=== PATIENT | male | born 1985 | race Caucasian/White ===

== ENCOUNTER 2016-11-21 11:25 | Emergency (ER) | payer OTHER ==
[~2016-11-21] VITALS: Ht 172.7 cm; Wt 65.8 kg
[~2016-11-21 11:25] MED LIST: IBUP-1007 PO; ONDA4TAB7 PO; OXYC-323 PO; TERA1CAP3 PO
[2016-11-21] MEDS ORDERED: MORPHINE SULFATE 10 MG/ML VIAL. IV ONE ×3 (12:30→15:30)
[2016-11-21] MEDS ORDERED: KETOROLAC TROMETHAMINE 30 MG/ML SYRINGE. IV ONE (12:30)
[2016-11-21] MEDS ORDERED: ONDANSETRON PF 4 MG/2 ML VIAL. IV ONE (12:30)
[2016-11-21] MEDS ORDERED: IV NORMAL SALINE 1000ML BAG 1,000 ML IV SCH (12:30)
[2016-11-21 12:39] LABS: BASO # 0.1 x10^3/uL (0.0-0.2); BASO % 1 % (0-3); EOS % 2 % (0-3); HEMOGLOBIN 14.8 g/dL (13.0-17.5); LYMPH # 2.1 x10^3/uL (1.0-4.8); LYMPH % 16 % (24-48); MEAN CORPUSCULAR HEMOGLOBIN 31 pg (25-35); MEAN CORPUSCULAR HGB CONC 33 g/dL (31-37); MEAN CORPUSCULAR VOLUME 94 fL (79-100); MONO % 9 % (0-9); NEUT % 72 % (31-73); PLATELET COUNT 247 x10^3/uL (140-400); RED CELL DISTRIBUTION WIDTH 13.2 % (11.5-14.5); WHITE BLOOD COUNT 13.4 x10^3/uL (4.0-11.0)
[2016-11-21 12:40] LABS: BILIRUBIN,URINE NEGATIVE (NEG); GLUCOSE,URINE NEGATIVE (NEG); NITRITE,URINE NEGATIVE (NEG); PROTEIN,URINE NEGATIVE (NEG-TRACE); UROBILINOGEN,URINE 0.2 mg/dL (0.2 mg/dL)
[2016-11-21 12:45] LABS: CALCIUM 9.6 mg/dL (8.5-10.1); CREATININE 1.3 mg/dL (0.7-1.3); GFR 63.6; POTASSIUM 3.9 mmol/L (3.5-5.1)
[2016-11-21 12:46] LABS: BARBITURATES NEG (NEG); BENZODIAZEPINES NEG (NEG); CANNABINOIDS NEG (NEG); COCAINE NEG (NEG); METHADONE NEG (NEG); OPIATES NEG (NEG); PHENCYCLIDINE NEG (NEG)
[2016-11-21 12:51] LABS: ALBUMIN 4.2 g/dL (3.4-5.0); ALBUMIN/GLOBULIN RATIO 1.3 (1.0-1.7); TOTAL BILIRUBIN 0.7 mg/dL (0.2-1.0); TOTAL PROTEIN 7.5 g/dL (6.4-8.2)
[2016-11-21 12:51] LABS: BACTERIA,URINE 0 /HPF (0-FEW); ETHANOL, URINE NEG (NEG); RBC,URINE 0 /HPF (0-2); WBC,URINE 0 /HPF (0-4)
--- NOTE | 2016-11-21 12:52 | PHYS DOC ---
Past Medical History Past Medical History: Kidney Stone Past Surgical History: Other Additional Past Surgical Histo: L KNEE ARTHROSCOPY Additional Information: 1 ppd Alcohol Use: None Drug Use: None Adult General Chief Complaint Chief Complaint: FLANK PAIN HPI HPI Patient is a 31 year old male presents emergency room the complaint of atraumatic, intermittent right flank pain for approximately one week. Patient was seen here this past year with similar symptoms. CT scan was performed that showed a kidney stone at the [facility]. Patient states he has not followed up with anybody since that period of time. He denies any history of recurring kidney stones or other renal problems. Patient denies any fevers or chills. He does report some nausea without vomiting. He denies antibiotic use in the past 30 days. Review of Systems Review of Systems Constitutional: Denies fever or chills [] Eyes: Denies change in visual acuity, redness, or eye pain [] HENT: Denies nasal congestion or sore throat [] Respiratory: Denies cough or shortness of breath [] Cardiovascular: No additional information not addressed in HPI [] GI: Denies abdominal pain, nausea, vomiting, bloody stools or diarrhea [] : Denies dysuria or hematuria [] Musculoskeletal: Denies back pain or joint pain [] Integument: Denies rash or skin lesions [] Neurologic: Denies headache, focal weakness or sensory changes [] Endocrine: Denies polyuria or polydipsia [] Current Medications Current Medications Current Medications Medications (Trade) Dose Ordered Sig/Nash Start Time Stop Time Status Last Admin Dose Admin Ketorolac Tromethamine (Toradol) 30 mg 1X ONCE 11/21/16 12:30 11/21/16 12:31 DC 11/21/16 12:37 30 MG Morphine Sulfate 5 mg 1X ONCE 11/21/16 15:30 11/21/16 15:31 DC 11/21/16 15:32 5 MG Ondansetron HCl (Zofran) 4 mg 1X ONCE 11/21/16 12:30 11/21/16 12:31 DC 11/21/16 12:36 4 MG Sodium Chloride (Iv Sodium Chloride 0.9% 1000ml Bag) 1,000 ml @ 100 mls/hr Q10H 11/21/16 12:30 11/21/16 15:43 DC 11/21/16 12:34 100 MLS/HR Allergies Allergies Allergies Coded Allergies Type Severity Reaction Last Updated Verified No Known Drug Allergies 06/22/16 No Physical Exam Physical Exam Constitutional: Well developed, well nourished, moderate distress, non-toxic appearance. HENT: Normocephalic, atraumatic, bilateral external ears normal, oropharynx moist, no oral exudates, nose normal. [] Eyes: PERRLA, EOMI, conjunctiva normal, no discharge. [] Neck: Normal range of motion, no tenderness, supple, no stridor. [] Cardiovascular:Heart rate regular rhythm, no murmur [] Lungs & Thorax: Bilateral breath sounds clear to auscultation [] Abdomen: Abdomen is soft and nondistended. There are normoactive bowel sounds in all 4 quadrants. There is no palpable deep into the abdominal wall or pulsatile mass. Skin: Warm, dry, no erythema, no rash. [] Back: Patient's back appears normal and atraumatic. There is a significant amount of right CVA tenderness. Extremities: No tenderness, no cyanosis, no clubbing, ROM intact, no edema. [] Neurologic: Alert and oriented X 3, normal motor function, normal sensory function, no focal deficits noted. [] Psychologic: Affect normal, judgement normal, mood normal. [] Current Patient Data Vital Signs Vital Signs Date Time Temp Pulse Resp B/P Pulse Ox O2 Delivery O2 Flow Rate FiO2 11/21/16 15:32 18 Room Air 11/21/16 15:02 66 135/85 100 Lab Values Laboratory Tests Test 11/21/16 11:40 11/21/16 11:45 White Blood Count 13.4x10^3/uL (4.0-11.0) H Red Blood Count 4.80x10^6/uL (4.30-5.70) Hemoglobin 14.8g/dL (13.0-17.5) Hematocrit 45.0% (39.0-53.0) Mean Corpuscular Volume 94fL (79-100) Mean Corpuscular Hemoglobin 31pg (25-35) Mean Corpuscular Hemoglobin Concent 33g/dL (31-37) Red Cell Distribution Width 13.2% (11.5-14.5) Platelet Count 247x10^3/uL (140-400) Neutrophils (%) (Auto) 72% (31-73) Lymphocytes (%) (Auto) 16% (24-48) L Monocytes (%) (Auto) 9% (0-9) Eosinophils (%) (Auto) 2% (0-3) Basophils (%) (Auto) 1% (0-3) Neutrophils # (Auto) 9.7x10^3uL (1.8-7.7) H Lymphocytes # (Auto) 2.1x10^3/uL (1.0-4.8) Monocytes # (Auto) 1.3x10^3/uL (0.0-1.1) H Eosinophils # (Auto) 0.3x10^3/uL (0.0-0.7) Basophils # (Auto) 0.1x10^3/uL (0.0-0.2) Sodium Level 141mmol/L (136-145) Potassium Level 3.9mmol/L (3.5-5.1) Chloride Level 103mmol/L (98-107) Carbon Dioxide Level 28mmol/L (21-32) Anion Gap 10 (6-14) Blood Urea Nitrogen 18mg/dL (8-26) Creatinine 1.3mg/dL (0.7-1.3) Estimated GFR (Cockcroft-Gault) 63.6 BUN/Creatinine Ratio 14 (6-20) Glucose Level 88mg/dL (70-99) Calcium Level 9.6mg/dL (8.5-10.1) Total Bilirubin 0.7mg/dL (0.2-1.0) Aspartate Amino Transferase (AST) 21U/L (15-37) Alanine Aminotransferase (ALT) 29U/L (16-63) Alkaline Phosphatase 61U/L (46-116) Total Protein 7.5g/dL (6.4-8.2) Albumin 4.2g/dL (3.4-5.0) Albumin/Globulin Ratio 1.3 (1.0-1.7) Lipase 129U/L (73-393) Urine Color Yellow Urine Clarity Clear Urine pH 7.0 Urine Specific [place] <=1.005 Urine Protein Negativemg/dL (NEG-TRACE) Urine Glucose (UA) Negativemg/dL (NEG) Urine Ketones (Stick) Negativemg/dL (NEG) Urine Blood Moderate (NEG) Urine Nitrite Negative (NEG) Urine Bilirubin Negative (NEG) Urine Urobilinogen Dipstick 0.2mg/dL (0.2 mg/dL) Urine Leukocyte Esterase Negative (NEG) Urine RBC 0/HPF (0-2) Urine WBC 0/HPF (0-4) Urine Bacteria 0/HPF (0-FEW) Urine Opiates Screen Neg (NEG) Urine Methadone Screen Neg (NEG) Urine Barbiturates Neg (NEG) Urine Phencyclidine Screen Neg (NEG) Urine Amphetamine/Methamphetamine Neg (NEG) Urine Benzodiazepines Screen Neg (NEG) Urine Cocaine Screen Neg (NEG) Urine Cannabinoids Screen Neg (NEG) Urine Ethyl Alcohol Neg (NEG) Laboratory Tests 11/21/16 11:40 Laboratory Tests 11/21/16 11:40 EKG EKG [] Radiology/Procedures Radiology/Procedures [] PATIENT: MATTHEW BARRIENTOS ACCOUNT: [id number] : 1985 LOCATION: ER AGE: 31 SEX: M EXAM STATUS: REG ER ORD. PHYSICIAN: LUIS ALBERTO HUGHES REASON: RIGHT flank pain PROCEDURE: ABDOMEN PELVIS WO CONTRAST Indication right flank pain. Imaging through the abdomen and pelvis was performed. Examination was tailored for the detection of renal and/or ureteral calculi. No IV or gastrointestinal contrast was administered. Note is made of a previous examination 06/22/2016. The lung bases are clear. The liver and spleen appear unremarkable and the gallbladder appears grossly normal. No definite pancreatic pathology is seen. There are occasional minute bilateral renal calculi. On the left there is no hydronephrosis hydroureter or calcification seen along the course of the ureter. On the right there is moderately severe hydronephrosis to the level of a 4 mm calculus in the mid right ureter opposite the L4-5 disc. Additional calcifications are noted in the pelvis compatible with phleboliths. An additional finding in the abdomen or pelvis is not seen. The appendix is seen in the right lower quadrant and appears unremarkable. IMPRESSION: 4 mm calculus in the mid right ureter with associated moderately high-grade obstructive uropathy. Minute bilateral renal calculi additionally noted PQRS Compliance Statement: One or more of the following individualized dose reduction techniques were utilized for this examination: 1. Automated exposure control 2. Adjustment of the mA and/or kV according to patient size 3. Use of iterative reconstruction technique DICTATED and SIGNED BY: ANGEL JOSUE MD DATE: 11/21/16 3294 CC: LUIS ALBERTO HUGHES; MANSOOR HERNANDEZ MD ~ Course & Med Decision Making Course & Med Decision Making Patient has had no episodes of vomiting here in the emergency department. He has required several doses of morphine to help make sure that his pain control has been "marginal". We currently do not have urology coverage at this facility. I discussed this with patient and his . Patient and requesting to be seen and taken care at [facility] if it is possible. They prefer to travel by way of POV to that facility. I spoke with Areli , urology office nurse who works for Dr. Bah. Dr. Bah will accept this patient on his service. Dragon Disclaimer Dragon Disclaimer This electronic medical record was generated, in whole or in part, using a voice recognition dictation system. Departure Departure Impression: Primary Impression: Hydronephrosis with renal and ureteral calculous obstruction Disposition: 02 TRANSFER [facility] ([facility] via POV) Condition: STABLE Referrals: MANSOOR HERNANDEZ MD (PCP) Patient Instructions: Kidney Stones, [id number] Additional Instructions: 1. As discussed, you have a kidney stone that is obstructing the flow of urine from your right kidney to your bladder. There is no evidence of infection or kidney function impairment at this time. 2. Dr. Bah, a urologist at [facility], well except you to his service for additional treatment. 3. You are choosing to go to [facility] by way of your privately owned vehicle. Be sure to go directly there. Check into the main admission office in the hospital. LUIS ALBERTO HUGHES Nov 21, 2016 12:52
--- NOTE | 2016-11-21 13:11 | RAD ---
Indication right flank pain. Imaging through the abdomen and pelvis was performed. Examination was tailored for the detection of renal and/or ureteral calculi. No IV or gastrointestinal contrast was administered. Note is made of a previous examination 06/22/2016. The lung bases are clear. The liver and spleen appear unremarkable and the gallbladder appears grossly normal. No definite pancreatic pathology is seen. There are occasional minute bilateral renal calculi. On the left there is no hydronephrosis hydroureter or calcification seen along the course of the ureter. On the right there is moderately severe hydronephrosis to the level of a 4 mm calculus in the mid right ureter opposite the L4-5 disc. Additional calcifications are noted in the pelvis compatible with phleboliths. An additional finding in the abdomen or pelvis is not seen. The appendix is seen in the right lower quadrant and appears unremarkable. IMPRESSION: 4 mm calculus in the mid right ureter with associated moderately high-grade obstructive uropathy. Minute bilateral renal calculi additionally noted PQRS Compliance Statement: One or more of the following individualized dose reduction techniques were utilized for this examination: 1. Automated exposure control 2. Adjustment of the mA and/or kV according to patient size 3. Use of iterative reconstruction technique
[2016-11-21 15:02] VITALS: BP 135/85
== END 2016-11-21 15:43 | disposition home or self-care (01) ==
LOC: ER 11:25
DX: N13.2 Hydronephrosis with renal and ureteral calculous obstruction (principal)
CPT/HCPCS: 36415; 74176; 80053; 81001; 83690; 85027; 96361; 96374; 96375; 96376; 99285; G0481; J1885; J2270; J2405; J7030

== ENCOUNTER 2017-11-29 10:39 | Emergency (ER) | payer OTHER ==
[2017-11-29] MEDS: IV NORMAL SALINE 1000ML BAG 1,000 ML IV (11:07)
[2017-11-29] MEDS: ONDANSETRON PF 4 MG/2 ML VIAL. IV (11:07)
[2017-11-29] MEDS: fentaNYL PF VIAL 100 MCG/2 ML VIAL IV ×4 (11:08→14:19)
[2017-11-29 11:10] LABS: ADD MAN DIFF? NO
[2017-11-29 11:21] LABS: BASO # 0.1 x10^3/uL (0.0-0.2); BASO % 1 % (0-3); EOS # 0.1 x10^3/uL (0.0-0.7); EOS % 2 % (0-3); HEMATOCRIT 47.4 % (39.0-53.0); HEMOGLOBIN 15.9 g/dL (13.0-17.5); LYMPH # 1.6 x10^3/uL (1.0-4.8); LYMPH % 18 % (24-48); MEAN CORPUSCULAR HEMOGLOBIN 32 pg (25-35); MEAN CORPUSCULAR HGB CONC 34 g/dL (31-37); MEAN CORPUSCULAR VOLUME 96 fL (79-100); MONO # 0.7 x10^3/uL (0.0-1.1); MONO % 8 % (0-9); NEUT # 6.3 x10^3uL (1.8-7.7); NEUT % 71 % (31-73); PLATELET COUNT 227 x10^3/uL (140-400); RED BLOOD COUNT 4.93 x10^6/uL (4.30-5.70); RED CELL DISTRIBUTION WIDTH 13.8 % (11.5-14.5); WHITE BLOOD COUNT 8.9 x10^3/uL (4.0-11.0)
[2017-11-29 11:23] LABS: BILIRUBIN,URINE NEGATIVE (NEG); CLARITY,URINE CLEAR; COLOR,URINE YELLOW; GLUCOSE,URINE NEGATIVE (NEG); NITRITE,URINE NEGATIVE (NEG); PH,URINE 7.5; PROTEIN,URINE NEGATIVE (NEG-TRACE); UROBILINOGEN,URINE 0.2 mg/dL (0.2 mg/dL)
[2017-11-29 11:26] LABS: ANION GAP 9 (6-14); BLOOD UREA NITROGEN 19 mg/dL (8-26); BUN/CREATININE RATIO 19 (6-20); CALCIUM 9.1 mg/dL (8.5-10.1); CARBON DIOXIDE 28 mmol/L (21-32); CHLORIDE 104 mmol/L (98-107); GFR 85.5; GLUCOSE 104 mg/dL (70-99); POTASSIUM 4.2 mmol/L (3.5-5.1); SODIUM 141 mmol/L (136-145)
[2017-11-29 11:34] LABS: ALBUMIN/GLOBULIN RATIO 1.2 (1.0-1.7); ALK PHOS 65 U/L (46-116); ALT (SGPT) 27 U/L (16-63); AST (SGOT) 17 U/L (15-37); LIPASE 107 U/L (73-393); TOTAL BILIRUBIN 0.3 mg/dL (0.2-1.0); TOTAL PROTEIN 7.4 g/dL (6.4-8.2)
[2017-11-29 11:35] LABS: BACTERIA,URINE 0 /HPF (0-FEW); RBC,URINE 0 /HPF (0-2); WBC,URINE 0 /HPF (0-4)
[2017-11-29] MEDS: KETOROLAC 30 MG/ML INJ. IV (12:31)
[2017-11-29] MEDS: HYDROcodone/APAP 7.5/325MG 1 TAB TABLET PO (15:09)
== END 2017-11-29 15:15 | disposition home or self-care (01) ==
LOC: ER 10:39
DX: R10.30 Lower abdominal pain, unspecified (principal); R11.0 Nausea; F17.200 Nicotine dependence, unspecified, uncomplicated; Z96.0 Presence of urogenital implants; Z87.442 Personal history of urinary calculi; Z88.5 Allergy status to narcotic agent
CPT/HCPCS: 36415; 74176; 76870; 80053; 81001; 83690; 85025; 96361; 96374; 96375; 96376; 99285-25; J1885; J2405; J3010; J7030

== ENCOUNTER 2017-12-01 05:50 | Emergency (ER) | payer OTHER ==
[2017-12-01] MEDS: IV NORMAL SALINE 1000ML BAG 1,000 ML IV (06:24)
[2017-12-01 06:40] LABS: ADD MAN DIFF? NO
[2017-12-01 06:51] LABS: ANION GAP 8 (6-14); BLOOD UREA NITROGEN 16 mg/dL (8-26); BUN/CREATININE RATIO 18 (6-20); CALCIUM 9.1 mg/dL (8.5-10.1); CARBON DIOXIDE 28 mmol/L (21-32); CHLORIDE 107 mmol/L (98-107); CREATININE 0.9 mg/dL (0.7-1.3); GFR 96.6; GLUCOSE 75 mg/dL (70-99); POTASSIUM 4.1 mmol/L (3.5-5.1); SODIUM 143 mmol/L (136-145)
[2017-12-01 06:54] LABS: BILIRUBIN,URINE NEGATIVE (NEG); CLARITY,URINE CLEAR; COLOR,URINE YELLOW; GLUCOSE,URINE NEGATIVE (NEG); NITRITE,URINE NEGATIVE (NEG); PROTEIN,URINE NEGATIVE (NEG-TRACE); UROBILINOGEN,URINE 0.2 mg/dL (0.2 mg/dL)
[2017-12-01 06:55] LABS: BACTERIA,URINE 0 /HPF (0-FEW); RBC,URINE 0 /HPF (0-2); WBC,URINE 0 /HPF (0-4)
[2017-12-01 06:57] LABS: ALBUMIN 3.8 g/dL (3.4-5.0); ALBUMIN/GLOBULIN RATIO 1.2 (1.0-1.7); ALK PHOS 67 U/L (46-116); ALT (SGPT) 24 U/L (16-63); AST (SGOT) 20 U/L (15-37); LIPASE 96 U/L (73-393); TOTAL BILIRUBIN 0.3 mg/dL (0.2-1.0); TOTAL PROTEIN 6.9 g/dL (6.4-8.2)
[2017-12-01] MEDS: LIDOCAINE 2% 100 MG/5 ML SYRINGE. IV (06:57)
[2017-12-01 07:00] LABS: BASO # 0.1 x10^3/uL (0.0-0.2); BASO % 1 % (0-3); EOS # 0.2 x10^3/uL (0.0-0.7); EOS % 3 % (0-3); HEMATOCRIT 44.8 % (39.0-53.0); LYMPH # 1.8 x10^3/uL (1.0-4.8); LYMPH % 21 % (24-48); MEAN CORPUSCULAR HEMOGLOBIN 32 pg (25-35); MEAN CORPUSCULAR HGB CONC 33 g/dL (31-37); MEAN CORPUSCULAR VOLUME 94 fL (79-100); MONO # 0.7 x10^3/uL (0.0-1.1); MONO % 8 % (0-9); NEUT # 5.6 x10^3uL (1.8-7.7); NEUT % 67 % (31-73); PLATELET COUNT 211 x10^3/uL (140-400); RED BLOOD COUNT 4.75 x10^6/uL (4.30-5.70); RED CELL DISTRIBUTION WIDTH 13.7 % (11.5-14.5); WHITE BLOOD COUNT 8.4 x10^3/uL (4.0-11.0)
[2017-12-01] MEDS: KETOROLAC 30 MG/ML INJ. IV (07:43)
[2017-12-01] MEDS: HYDROcodone/APAP 5/325MG 1 TAB TABLET PO (08:46)
[2017-12-01] MEDS: HALOPERIDOL LACTATE 5 MG/ML VIAL. IVP (09:38)
[2017-12-01] MEDS ORDERED: IV NORMAL SALINE 1000ML BAG 1,000 ML IV (10:00)
[2017-12-01] MEDS ORDERED: CONTRAST GIVEN MC (10:15)
[2017-12-01] MEDS: IOHEXOL 300 MG/ML 100ML VIAL. IV (10:17)
[2017-12-01 10:47] LABS: SEDIMENTATION RATE 1 (0-15)
== END 2017-12-01 10:10 | disposition left against medical advice (07) ==
LOC: ER 10:10
DX: R10.84 Generalized abdominal pain (principal); Z87.442 Personal history of urinary calculi; Z88.5 Allergy status to narcotic agent
CPT/HCPCS: 36415; 76770; 80053; 81001; 83690; 85025; 85651; 96361; 96374; 96375; 99285-25; J1630; J1885; J7030

== ENCOUNTER 2018-09-22 19:38 | Emergency (ER) | payer OTHER ==
[~2018-09-22] VITALS: Ht 172.7 cm; Wt 63.5 kg
[~2018-09-22 19:38] MED LIST changes: +DICY10CA53 PO; +HYDR-971 PO; +ONDA4TAB10 SL
[2018-09-22] MEDS ORDERED: IV NORMAL SALINE 1000ML BAG 1,000 ML IV SCH (19:51)
[2018-09-22] MEDS ORDERED: KETOROLAC 30 MG/ML VIAL. IV ONE (20:00)
--- NOTE | 2018-09-22 20:04 | PHYS DOC ---
Past Medical History Past Medical History: Kidney Stone Additional Past Medical Histor: "INFLAMED INTESTINES" Past Surgical History: Other Additional Past Surgical Histo: LEFT KNEE SX, (?right) KIDNEY STENT Alcohol Use: None Drug Use: None Adult General Chief Complaint Chief Complaint: FLANK PAIN HPI HPI Patient is a 33 year old male who presents with left upper quadrant abdominal and flank pain. This started proximally 36 hours ago. It has been constant and getting worse over time. Worse after food. No home medicine has been taken. Also worse with movements kind of bending and deep breaths. Patient has no PE risk factors. Minimal worsening with exertion. No radiation of the pain. Reports it is moderate to severe in intensity. Some nausea, no vomiting, no diarrhea. No previous history of this. [] Review of Systems Review of Systems Constitutional: Denies fever or chills [] Eyes: Denies change in visual acuity, redness, or eye pain [] HENT: Denies nasal congestion or sore throat [] Respiratory: Denies cough or shortness of breath [] Cardiovascular: No chest pain or palpitations[] GI: See history of present illness[] : Denies dysuria or hematuria [] Musculoskeletal: Denies back pain or joint pain [] Integument: Denies rash or skin lesions [] Neurologic: Denies headache, focal weakness or sensory changes [] Endocrine: Denies polyuria or polydipsia [] All other systems were reviewed and found to be within normal limits, except as documented in this note. Current Medications Current Medications Current Medications Medications (Trade) Dose Ordered Sig/Nash Start Time Stop Time Status Last Admin Dose Admin Fentanyl Citrate (Fentanyl 2ml Vial) 25 mcg PRN Q15MIN PRN 09/22/18 20:00 09/23/18 19:59 09/22/18 21:24 25 MCG Hyoscyamine (Anaspaz) 0.125 mg 1X ONCE 09/22/18 21:30 09/22/18 21:31 DC Ketorolac Tromethamine (Toradol 30mg Vial) 30 mg 1X ONCE 09/22/18 20:00 09/22/18 20:01 DC 09/22/18 20:42 30 MG Metoclopramide HCl (Reglan Vial) 10 mg 1X ONCE 09/22/18 20:45 09/22/18 20:45 DC Sodium Chloride 1,000 ml @ 1,000 mls/hr Q1H 09/22/18 19:51 09/22/18 20:50 DC 09/22/18 19:51 1,000 MLS/HR Allergies Allergies Allergies Coded Allergies Type Severity Reaction Last Updated Verified codeine Allergy Intermediate Itching 11/29/17 Yes Physical Exam Physical Exam Constitutional: Well developed, well nourished, mild discomfort, non-toxic appearance. [] HENT: Normocephalic, atraumatic, bilateral external ears normal, oropharynx moist, no oral exudates, nose normal. [] Eyes: PERRLA, EOMI, conjunctiva normal, no discharge. [] Neck: Normal range of motion, no tenderness, supple, no stridor. [] Cardiovascular:Heart rate regular rhythm, no murmur [] Lungs & Thorax: Bilateral breath sounds clear to auscultation [] Abdomen: Bowel sounds normal, soft, some left upper quadrant tenderness, no rebound, no guarding, no rigidity, no CVA tenderness, no masses, no pulsatile masses. [] Skin: Warm, dry, no erythema, no rash. [] Back: No tenderness, no CVA tenderness. [] Extremities: No tenderness, no cyanosis, no clubbing, ROM intact, no edema. [] Neurologic: Alert and oriented X 3, normal motor function, normal sensory function, no focal deficits noted. [] Psychologic: Affect normal, judgement normal, mood normal. [] Current Patient Data Vital Signs Vital Signs Date Time Temp Pulse Resp B/P (MAP) Pulse Ox O2 Delivery O2 Flow Rate FiO2 09/22/18 21:24 20 100 Room Air 09/22/18 19:40 98.1 86 155/85 (108) 98.1 Lab Values Laboratory Tests Test 09/22/18 19:45 09/22/18 20:25 Urine Collection Type Unknown Urine Color Yellow Urine Clarity Clear Urine pH 6.5 Urine Specific [place] 1.015 Urine Protein Negative mg/dL (NEG-TRACE) Urine Glucose (UA) Negative mg/dL (NEG) Urine Ketones (Stick) Negative mg/dL (NEG) Urine Blood Negative (NEG) Urine Nitrite Negative (NEG) Urine Bilirubin Negative (NEG) Urine Urobilinogen Dipstick 0.2 mg/dL (0.2 mg/dL) Urine Leukocyte Esterase Negative (NEG) Urine RBC Occ /HPF (0-2) Urine WBC Occ /HPF (0-4) Urine Squamous Epithelial Cells Occ /LPF Urine Bacteria 0 /HPF (0-FEW) Urine Hyaline Casts Occasional /HPF Urine Mucus Mod /LPF Urine Opiates Screen Neg (NEG) Urine Methadone Screen Neg (NEG) Urine Barbiturates Pos (NEG) Urine Phencyclidine Screen Neg (NEG) Urine Amphetamine/Methamphetamine Neg (NEG) Urine Benzodiazepines Screen Neg (NEG) Urine Cocaine Screen Neg (NEG) Urine Cannabinoids Screen Neg (NEG) Urine Ethyl Alcohol Neg (NEG) White Blood Count 8.2 x10^3/uL (4.0-11.0) Red Blood Count 4.74 x10^6/uL (4.30-5.70) Hemoglobin 15.2 g/dL (13.0-17.5) Hematocrit 44.9 % (39.0-53.0) Mean Corpuscular Volume 95 fL (79-100) Mean Corpuscular Hemoglobin 32 pg (25-35) Mean Corpuscular Hemoglobin Concent 34 g/dL (31-37) Red Cell Distribution Width 13.6 % (11.5-14.5) Platelet Count 220 x10^3/uL (140-400) Neutrophils (%) (Auto) 55 % (31-73) Lymphocytes (%) (Auto) 32 % (24-48) Monocytes (%) (Auto) 9 % (0-9) Eosinophils (%) (Auto) 3 % (0-3) Basophils (%) (Auto) 1 % (0-3) Neutrophils # (Auto) 4.5 x10^3uL (1.8-7.7) Lymphocytes # (Auto) 2.6 x10^3/uL (1.0-4.8) Monocytes # (Auto) 0.7 x10^3/uL (0.0-1.1) Eosinophils # (Auto) 0.2 x10^3/uL (0.0-0.7) Basophils # (Auto) 0.1 x10^3/uL (0.0-0.2) Prothrombin Time 12.2 SEC (11.7-14.0) Prothrombin Time INR 1.0 (0.8-1.1) D-Dimer (Anya) < 0.27 ug/mlFEU Sodium Level 142 mmol/L (136-145) Potassium Level 4.0 mmol/L (3.5-5.1) Chloride Level 105 mmol/L (98-107) Carbon Dioxide Level 29 mmol/L (21-32) Anion Gap 8 (6-14) Blood Urea Nitrogen 19 mg/dL (8-26) Creatinine 1.2 mg/dL (0.7-1.3) Estimated GFR (Cockcroft-Gault) 68.9 BUN/Creatinine Ratio 16 (6-20) Glucose Level 88 mg/dL (70-99) Calcium Level 9.2 mg/dL (8.5-10.1) Total Bilirubin 0.2 mg/dL (0.2-1.0) Aspartate Amino Transferase (AST) 17 U/L (15-37) Alanine Aminotransferase (ALT) 25 U/L (16-63) Alkaline Phosphatase 70 U/L (46-116) Troponin I Quantitative < 0.017 ng/mL (0.000-0.055) Total Protein 7.0 g/dL (6.4-8.2) Albumin 3.5 g/dL (3.4-5.0) Albumin/Globulin Ratio 1.0 (1.0-1.7) Lipase 158 U/L (73-393) Laboratory Tests 09/22/18 20:25 Laboratory Tests 09/22/18 20:25 EKG EKG EKG shows a normal sinus rhythm, no ST elevation, normal axis, no prolonged QTC[ ] Radiology/Procedures Radiology/Procedures CT scan of the abdomen and pelvis shows no acute abdominal or pelvic findings. There are 1 mm bilateral renal stones, there is no obstructive uropathy. Moderate colonic stool.[] Course & Med Decision Making Course & Med Decision Making Pertinent Labs and Imaging studies reviewed. (See chart for details) ED course: Patient arrived, was placed in bed, tolerated exam well. Patient received IV pain medicine which did improve his discomfort. He also received oral medication. He was transported to and from CT with any complications. After return laboratory and CT fundus, discussion was made with the patient regarding these findings. All questions were answered. Medical decision making: There is no evidence of intestinal obstruction or perforation, no evidence of appendicitis or cholecystitis, no evidence of pancreatitis, no evidence of kidney stone, nor urinary tract infection/ pyelonephritis. No evidence of an acute medical or surgical pathology requiring admission at this time.[] Dragon Disclaimer Dragon Disclaimer This electronic medical record was generated, in whole or in part, using a voice recognition dictation system. Departure Departure Impression: Primary Impression: Abdominal pain Disposition: 01 HOME, SELF-CARE Referrals: NO PCP (PCP) Patient Instructions: Abdominal Pain Additional Instructions: Follow-up with your regular doctor in 2 days. Drink plenty of fluids. Return to the ER if forcing pain, unable to tolerate liquids, or any other concerns. Eat a bland diet for the next 2 days avoiding fatty foods, milk, and pepper. The stylet shouldn't include bananas, rice, applesauce, and toast. No butter or margarine on the toast, you may use jam or jelly. He may add baked potatoes and bread to this diet as well. Then advance the diet as tolerated. Scripts Dicyclomine Hcl (DICYCLOMINE HCL) 10 Mg Capsule 10 MG PO QID, #30 CAP Prov: GENESIS MORALES DO 09/22/18 Meloxicam (MELOXICAM) 7.5 Mg Tablet 7.5 MG PO DAILY, #20 TAB Prov: GENESIS MORALES DO 09/22/18 Metoclopramide Hcl (REGLAN) 10 Mg Tablet 10 MG PO QIDACHS, #30 TAB 0 Refills Prov: GENESIS MORALES DO 09/22/18 Problem Qualifiers Primary Impression: Abdominal pain Abdominal location: left upper quadrant Qualified Codes: R10.12 - Left upper quadrant pain GENESIS MORALES DO Sep 22, 2018 20:04
[2018-09-22 20:20] LABS: BILIRUBIN,URINE NEGATIVE (NEG); CLARITY,URINE CLEAR; COLOR,URINE YELLOW; NITRITE,URINE NEGATIVE (NEG); PH,URINE 6.5; PROTEIN,URINE NEGATIVE (NEG-TRACE); UROBILINOGEN,URINE 0.2 mg/dL (0.2 mg/dL)
[2018-09-22 20:23] LABS: BACTERIA,URINE 0 /HPF (0-FEW); RBC,URINE OCC /HPF (0-2)
[2018-09-22 20:24] LABS: HYALINE CASTS, URINE OCCASIONAL /HPF; SQUAMOUS EPITHELIAL CELL,UR OCC /LPF; WBC,URINE OCC /HPF (0-4)
[2018-09-22 20:26] LABS: AMPHETAMINE/METHAMPHETAMINE NEG (NEG); BARBITURATES POS (NEG); BENZODIAZEPINES NEG (NEG); CANNABINOIDS NEG (NEG); COCAINE NEG (NEG); METHADONE NEG (NEG); OPIATES NEG (NEG); PHENCYCLIDINE NEG (NEG)
[2018-09-22 20:37] LABS: BASO # 0.1 x10^3/uL (0.0-0.2); BASO % 1 % (0-3); EOS # 0.2 x10^3/uL (0.0-0.7); EOS % 3 % (0-3); HEMATOCRIT 44.9 % (39.0-53.0); HEMOGLOBIN 15.2 g/dL (13.0-17.5); LYMPH # 2.6 x10^3/uL (1.0-4.8); LYMPH % 32 % (24-48); MEAN CORPUSCULAR HEMOGLOBIN 32 pg (25-35); MEAN CORPUSCULAR HGB CONC 34 g/dL (31-37); MEAN CORPUSCULAR VOLUME 95 fL (79-100); MONO # 0.7 x10^3/uL (0.0-1.1); MONO % 9 % (0-9); NEUT # 4.5 x10^3uL (1.8-7.7); NEUT % 55 % (31-73); PLATELET COUNT 220 x10^3/uL (140-400); RED BLOOD COUNT 4.74 x10^6/uL (4.30-5.70); RED CELL DISTRIBUTION WIDTH 13.6 % (11.5-14.5); WHITE BLOOD COUNT 8.2 x10^3/uL (4.0-11.0)
[2018-09-22] MEDS: fentaNYL PF VIAL 100 MCG/2 ML VIAL IV PRN ×3 (20:43→21:51)
[2018-09-22] MEDS ORDERED: METOCLOPRAMIDE HCL 10 MG/2 ML VIAL. IV ONE (20:45)
[2018-09-22 20:47] LABS: CALCIUM 9.2 mg/dL (8.5-10.1); CREATININE 1.2 mg/dL (0.7-1.3); GFR 68.9; PROTHROMBIN TIME PATIENT 12.2 SEC (11.7-14.0)
[2018-09-22 20:53] LABS: D-DIMER < 0.27 ug/mlFEU (0.00-0.50)
[2018-09-22 20:54] LABS: ALBUMIN 3.5 g/dL (3.4-5.0); TOTAL BILIRUBIN 0.2 mg/dL (0.2-1.0)
--- NOTE | 2018-09-22 21:24 | RAD ---
EXAM: Abdomen and pelvis CT without intravenous contrast. HISTORY: Left flank pain and left upper quadrant pain. TECHNIQUE: Computed tomographic images of the abdomen and pelvis were obtained without contrast. Multiplanar reformatting was performed. *One or more of the following individualized dose reduction techniques were utilized for this examination: 1. Automated exposure control. 2. Adjustment of the mA and/or kV according to patient size. 3. Use of iterative reconstruction technique. COMPARISON: CT dated 11/29/2017. FINDINGS: Evaluation of the lower thorax demonstrates posterior dependent and basilar atelectasis. There is no infiltrate or pleural effusion. The liver is upper normal in size. There is no focal hepatic lesion. The gallbladder, pancreas, spleen, and adrenal glands are unremarkable. There are 1 mm bilateral renal stones. There is no evidence of obstructive uropathy. The appendix is normal in appearance. There is a moderate amount of colonic stool. There is no evidence of bowel obstruction. The bladder is unremarkable. There is no lymphadenopathy. There is no suspicious osseous lesion. There are degenerative changes at the lumbosacral junction, with associated mild bilateral foraminal stenosis. There are few lower thoracic endplate Schmorl's nodes. IMPRESSION: 1. No acute abdominal or pelvic finding. 2. 1 mm bilateral renal stones. There is no obstructive uropathy. 3. Moderate colonic stool. Electronically signed by: Myrna Lema MD (09/22/2018 9:21 PM) [facility]
[2018-09-22] MEDS ORDERED: HYOSCYAMINE 0.125 MG TAB.RAPDIS PO ONE (21:30)
[2018-09-22] MEDS ORDERED: MELO7.5T29 PO (21:54)
[2018-09-22] MEDS ORDERED: DICY10CA3 PO (21:54)
[2018-09-22] MEDS ORDERED: METO10TA81 PO (21:54)
[2018-09-22 22:05] VITALS: BP 129/67
--- NOTE | 2018-09-23 01:51 | EKG ---
[facility] [address] [place] [id number] Test Date: 2018-09-22 Test Time: 20:09:32 Pat Name: MATTHEW BARRIENTOS Department: Room: Gender: M Education Manager: : 1985 Requested By: GENESIS MORALES Order Number: [id number] Reading MD: Ravi Nolan MD Measurements Intervals [place] Rate: 62 P: 52 MD: 134 QRS: 85 QRSD: 82 T: 46 QT: 380 QTc: 388 Interpretive Statements SINUS RHYTHM Electronically Signed On 09-27-2018 11:02:49 CRATE LINER by Ravi Nolan MD
== END 2018-09-22 22:05 | disposition home or self-care (01) ==
LOC: ER 19:38
DX: R10.12 Left upper quadrant pain (principal); R11.0 Nausea; N20.0 Calculus of kidney; Z88.5 Allergy status to narcotic agent
CPT/HCPCS: 36415; 74176; 80053; 80307; 81001; 83690; 84484; 85025; 85379; 85610; 93005; 96374; 96375; 96376; 99285; J1885; J3010; J7030

== ENCOUNTER 2018-09-28 00:46 | Emergency (ER) | payer OTHER ==
[~2018-09-28] VITALS: Ht 172.7 cm; Wt 63.5 kg
[~2018-09-28 00:46] MED LIST changes: +DICY10CA3 PO; +HYDR-3164 PO; -HYDR-971 PO; +MELO7.5T29 PO; +METO10TA81 PO
--- NOTE | 2018-09-28 01:29 | PHYS DOC ---
Past Medical History Past Medical History: Kidney Stone Additional Past Medical Histor: "INFLAMED INTESTINES" Past Surgical History: Other Additional Past Surgical Histo: LEFT KNEE SX, (?right) KIDNEY STENT Alcohol Use: Rarely Drug Use: Marijuana Adult General Chief Complaint Chief Complaint: RIB PAIN [facility] HPI Patient is a 33 year old male who presents with left chest and flank pain. This started approximately a week ago. Patient was seen for this in the emergency department. Has not seen anyone since his emergency department visit. This is been continuing without any improvement with home, outpatient anti- inflammatory medication. Patient denies any trauma. Denies any PE risk factors. The discomfort worsens with deep breaths. Slightly better with shallow breathing. No fever, no cough. No worsening with exertion. [] Review of Systems Review of Systems Constitutional: Denies fever or chills [] Eyes: Denies change in visual acuity, redness, or eye pain [] HENT: Denies nasal congestion or sore throat [] Respiratory: Denies cough or shortness of breath [] Cardiovascular: No additional information not addressed in HPI [] GI: Denies abdominal pain, nausea, vomiting, bloody stools or diarrhea [] : Denies dysuria or hematuria [] Musculoskeletal: Denies back pain or joint pain [] Integument: Denies rash or skin lesions [] Neurologic: Denies headache, focal weakness or sensory changes [] Endocrine: Denies polyuria or polydipsia [] All other systems were reviewed and found to be within normal limits, except as documented in this note. Current Medications Current Medications Current Medications Medications (Trade) Dose Ordered Sig/Nash Start Time Stop Time Status Last Admin Dose Admin Info (CONTRAST GIVEN -- Rx MONITORING) 1 each PRN DAILY PRN 09/28/18 02:15 09/30/18 02:14 Iohexol (Omnipaque 300 Mg/ml) 75 ml 1X ONCE 09/28/18 02:30 09/28/18 02:31 DC 09/28/18 02:20 75 ML Ketorolac Tromethamine (Toradol 15mg Vial) 15 mg 1X ONCE 09/28/18 02:30 09/28/18 02:31 DC 09/28/18 02:27 15 MG Allergies Allergies Allergies Coded Allergies Type Severity Reaction Last Updated Verified codeine Allergy Intermediate Itching 11/29/17 Yes Physical Exam Physical Exam Constitutional: Well developed, well nourished, mild discomfort, non-toxic appearance. [] HENT: Normocephalic, atraumatic, bilateral external ears normal, oropharynx moist, no oral exudates, nose normal. [] Eyes: PERRLA, EOMI, conjunctiva normal, no discharge. [] Neck: Normal range of motion, no tenderness, supple, no stridor. [] Cardiovascular:Heart rate regular rhythm, no murmur [] Lungs & Thorax: Bilateral breath sounds clear to auscultation, no chest tenderness to palpation. No crepitus. No flail segment noted[] Abdomen: Bowel sounds normal, soft, no tenderness, no masses, no pulsatile masses. [] Skin: Warm, dry, no erythema, no rash. [] Back: No tenderness, no CVA tenderness. [] Extremities: No tenderness, no cyanosis, no clubbing, ROM intact, no edema. [] Neurologic: Alert and oriented X 3, normal motor function, normal sensory function, no focal deficits noted. [] Psychologic: Affect normal, judgement normal, mood normal. [] Current Patient Data Vital Signs Vital Signs Date Time Temp Pulse Resp B/P (MAP) Pulse Ox O2 Delivery O2 Flow Rate FiO2 09/28/18 01:10 97.8 85 18 148/89 (108) 100 Room Air 97.8 Lab Values Laboratory Tests Test 09/28/18 01:39 09/28/18 01:48 White Blood Count 8.3 x10^3/uL (4.0-11.0) Red Blood Count 4.90 x10^6/uL (4.30-5.70) Hemoglobin 16.0 g/dL (13.0-17.5) Hematocrit 46.4 % (39.0-53.0) Mean Corpuscular Volume 95 fL (79-100) Mean Corpuscular Hemoglobin 33 pg (25-35) Mean Corpuscular Hemoglobin Concent 35 g/dL (31-37) Red Cell Distribution Width 13.3 % (11.5-14.5) Platelet Count 217 x10^3/uL (140-400) Neutrophils (%) (Auto) 57 % (31-73) Lymphocytes (%) (Auto) 29 % (24-48) Monocytes (%) (Auto) 10 % (0-9) H Eosinophils (%) (Auto) 3 % (0-3) Basophils (%) (Auto) 1 % (0-3) Neutrophils # (Auto) 4.7 x10^3uL (1.8-7.7) Lymphocytes # (Auto) 2.4 x10^3/uL (1.0-4.8) Monocytes # (Auto) 0.8 x10^3/uL (0.0-1.1) Eosinophils # (Auto) 0.3 x10^3/uL (0.0-0.7) Basophils # (Auto) 0.1 x10^3/uL (0.0-0.2) Prothrombin Time 11.6 SEC (11.7-14.0) L Prothrombin Time INR 0.9 (0.8-1.1) Sodium Level 142 mmol/L (136-145) Potassium Level 4.3 mmol/L (3.5-5.1) Chloride Level 106 mmol/L (98-107) Carbon Dioxide Level 29 mmol/L (21-32) Anion Gap 7 (6-14) Blood Urea Nitrogen 21 mg/dL (8-26) Creatinine 1.0 mg/dL (0.7-1.3) Estimated GFR (Cockcroft-Gault) 85.0 BUN/Creatinine Ratio 21 (6-20) H Glucose Level 102 mg/dL (70-99) H Calcium Level 9.0 mg/dL (8.5-10.1) Magnesium Level 1.9 mg/dL (1.8-2.4) Total Bilirubin 0.2 mg/dL (0.2-1.0) Aspartate Amino Transferase (AST) 21 U/L (15-37) Alanine Aminotransferase (ALT) 32 U/L (16-63) Alkaline Phosphatase 92 U/L (46-116) Total Protein 6.9 g/dL (6.4-8.2) Albumin 3.7 g/dL (3.4-5.0) Albumin/Globulin Ratio 1.2 (1.0-1.7) Lipase 129 U/L (73-393) POC Troponin I 0.00 ng/ml (<0.08) Laboratory Tests 09/28/18 01:39 Laboratory Tests 09/28/18 01:39 EKG EKG EKG shows a normal sinus rhythm, no ST elevations, normal axis, normal QTC.[] Radiology/Procedures Radiology/Procedures CT angiogram of the chest to rule out PE shows: FINDINGS: 5 mm left upper lung nodule. 5 mm left lung nodule at base as well. Mild dependent atelectasis. Nodule along the fissure on the right, could be a fissural lymph node. Sub-4 mm right middle lobe nodule. No evidence of pneumothorax. Only a small amount of contrast in the thoracic aorta but no gross aneurysm seen. Lumen is limited evaluation. Soft tissue density anterior mediastinum could be residual thymus. Coronary artery calcific atherosclerosis. No definite acute fracture. No central pulmonary embolus. IMPRESSION: 1. No central pulmonary embolus or focal airspace consolidation. 2. Multiple pulmonary nodules. Fleischner Society recommendations for solitary solid lung nodule follow up.: In a low risk patient: <6mm - No follow up required. 6-8mm - 6-[address], then CT at 18-24 months. >8mm - CT at 3 months, PET/CT or tissue sampling. In a high risk patient (history of smoking or other known risk factors): <6mm - Follow up CT at 12 months. 6-8mm - 6-[address], then CT at 18-24 months. >8mm - CT at 3 months, PET/CT or tissue sampling. Fleischner Society recommendations for multiple solid lung nodule follow up.: In a low risk patient: <6mm - No follow up required. 6-8mm - 3-[address], then CT at 18-24 months. >8mm - CT at 3-6 months, then at 18-24 months. PET/CT or tissue sampling based on most suspicious nodule. In a high risk patient (history of smoking or other known risk factors): <6mm - Follow up CT at 12 months. 6-8mm - 3-[address], then CT at 18-24 months. >8mm - CT at 3-6 months, PET/CT or tissue sampling option based on most suspicious nodule.[] Course & Med Decision Making Course & Med Decision Making Pertinent Labs and Imaging studies reviewed. (See chart for details) Medical decision making: There is no evidence of pneumonia, pneumothorax, pulmonary embolism, nor acute coronary syndrome. History is not consistent with Boorhaaves syndrome, and based on previous evaluation no evidence of renal stone disease nor intra-abdominal pathology. No endocarditis. ED course: Patient arrived, was placed in bed, tolerated exam well. Patient had IV access established, was given pain medication which didn't improve his pain, and was transported to and from [place] without any complications. After the return of the lab and radiology findings, these were communicated with the patient and stressed the need for follow-up. Patient voiced understanding. All questions were answered.[] Dragon Disclaimer Dragon Disclaimer This electronic medical record was generated, in whole or in part, using a voice recognition dictation system. Departure Departure Impression: Primary Impression: Chest pain Disposition: HOME, SELF-CARE Referrals: NO PCP (PCP) Patient Instructions: Chest Pain (Nonspecific) Additional Instructions: Follow-up with your regular doctor in 2 days. If you do not have a regular doctor a list of local low-cost clinics has been provided for you. Return to the ER if worsening pain, difficulty breathing, or any other concerns. Scripts Oxaprozin (DAYPRO) 600 Mg Tablet 600 MG PO BID, #20 TAB Prov: GENESIS MORALES DO 09/28/18 Tramadol Hcl (TRAMADOL HCL) 50 Mg Tablet 50 MG PO Q6HRS PRN for PAIN, #20 TAB Prov: GENESIS MORALES DO 09/28/18 Problem Qualifiers Primary Impression: Chest pain Chest pain type: unspecified Qualified Codes: R07.9 - Chest pain, unspecified GENESIS MORALES DO Sep 28, 2018 01:29
[2018-09-28 01:53] LABS: BASO # 0.1 x10^3/uL (0.0-0.2); BASO % 1 % (0-3); EOS # 0.3 x10^3/uL (0.0-0.7); EOS % 3 % (0-3); HEMATOCRIT 46.4 % (39.0-53.0); LYMPH # 2.4 x10^3/uL (1.0-4.8); LYMPH % 29 % (24-48); MEAN CORPUSCULAR HEMOGLOBIN 33 pg (25-35); MEAN CORPUSCULAR HGB CONC 35 g/dL (31-37); MEAN CORPUSCULAR VOLUME 95 fL (79-100); MONO # 0.8 x10^3/uL (0.0-1.1); MONO % 10 % (0-9); NEUT # 4.7 x10^3uL (1.8-7.7); NEUT % 57 % (31-73); PLATELET COUNT 217 x10^3/uL (140-400); RED CELL DISTRIBUTION WIDTH 13.3 % (11.5-14.5); WHITE BLOOD COUNT 8.3 x10^3/uL (4.0-11.0)
[2018-09-28 02:01] LABS: PROTHROMBIN TIME PATIENT 11.6 SEC (11.7-14.0)
[2018-09-28 02:02] LABS: POTASSIUM 4.3 mmol/L (3.5-5.1)
[2018-09-28 02:08] LABS: ALBUMIN 3.7 g/dL (3.4-5.0); ALBUMIN/GLOBULIN RATIO 1.2 (1.0-1.7); MAGNESIUM 1.9 mg/dL (1.8-2.4); TOTAL BILIRUBIN 0.2 mg/dL (0.2-1.0); TOTAL PROTEIN 6.9 g/dL (6.4-8.2)
[2018-09-28] MEDS ORDERED: CONTRAST GIVEN. MC PRN (02:15)
[2018-09-28] MEDS ORDERED: IOHEXOL 300 MG/ML 100ML VIAL. IV ONE (02:30)
[2018-09-28] MEDS ORDERED: KETOROLAC 15 MG/ML VIAL. IV ONE (02:30)
--- NOTE | 2018-09-28 02:47 | RAD ---
INDICATION: lt rib and chest pain; no injury; Omni 300, 75ml COMPARISON: None. TECHNIQUE: Axial CT images obtained through the chest. Intravenous contrast utilized. Angiogram 3D images processed per protocol. One or more of the following individualized dose reduction techniques were utilized for this examination: 1. Automated exposure control; 2. Adjustment of the mA and/or kV according to patient size; 3. Use of iterative reconstruction technique. FINDINGS: 5 mm left upper lung nodule. 5 mm left lung nodule at base as well. Mild dependent atelectasis. Nodule along the fissure on the right, could be a fissural lymph node. Sub-4 mm right middle lobe nodule. No evidence of pneumothorax. Only a small amount of contrast in the thoracic aorta but no gross aneurysm seen. Lumen is limited evaluation. Soft tissue density anterior mediastinum could be residual thymus. Coronary artery calcific atherosclerosis. No definite acute fracture. No central pulmonary embolus. IMPRESSION: 1. No central pulmonary embolus or focal airspace consolidation. 2. Multiple pulmonary nodules. Fleischner Society recommendations for solitary solid lung nodule follow up.: In a low risk patient: <6mm - No follow up required. 6-8mm - 6-[address], then CT at 18-24 months. >8mm - CT at 3 months, PET/CT or tissue sampling. In a high risk patient (history of smoking or other known risk factors): <6mm - Follow up CT at 12 months. 6-8mm - 6-[address], then CT at 18-24 months. >8mm - CT at 3 months, PET/CT or tissue sampling. Fleischner Society recommendations for multiple solid lung nodule follow up.: In a low risk patient: <6mm - No follow up required. 6-8mm - 3-[address], then CT at 18-24 months. >8mm - CT at 3-6 months, then at 18-24 months. PET/CT or tissue sampling based on most suspicious nodule. In a high risk patient (history of smoking or other known risk factors): <6mm - Follow up CT at 12 months. 6-8mm - 3-[address], then CT at 18-24 months. >8mm - CT at 3-6 months, PET/CT or tissue sampling option based on most suspicious nodule. Electronically signed by: Federico Deras MD (09/28/2018 2:43 AM) [id number]
[2018-09-28] MEDS ORDERED: TRAM50TA PO (03:04)
[2018-09-28] MEDS ORDERED: OXAP600T PO (03:04)
[2018-09-28 03:21] VITALS: BP 125/76
[2018-09-28] MEDS ORDERED: traMADol 50 MG TABLET PO ONE (03:30)
--- NOTE | 2018-09-28 07:02 | EKG ---
[facility] [address] [place] [id number] Test Date: 2018-09-28 Test Time: 01:45:46 Pat Name: MATTHEW BARRIENTOS Department: Room: Gender: M [employer]: : [email or web address] Requested By: GENESIS MORALES Order Number: [id number] Reading MD: Ravi Nolan MD Measurements Intervals [place] Rate: 58 P: 54 [place]: 142 QRS: 77 QRSD: 82 T: 47 QT: 398 QTc: 394 Interpretive Statements SINUS RHYTHM Electronically Signed On 09-28-2018 11:11:38 [employer] by Ravi Nolan MD
== END 2018-09-28 03:45 | disposition home or self-care (01) ==
LOC: ER 00:46
DX: R07.89 Other chest pain (principal); R10.9 Unspecified abdominal pain; Z88.5 Allergy status to narcotic agent
CPT/HCPCS: 36415; 71275; 80053; 83690; 83735; 84484; 85025; 85610; 93005; 96374; 99285; J1885; Q9967